=== PATIENT | female | born 1950 | race Caucasian/White ===

== ENCOUNTER 2017-03-26 13:19 | Emergency (ER) | payer OTHER ==
[~2017-03-26] VITALS: Ht 157.5 cm; Wt 71.2 kg
[~2017-03-26 13:19] MED LIST: IBUP800T23 PO; METO25 PO
[2017-03-26 13:25] VITALS: BP 140/76; PULSE 98; RESP 14; TEMP 98.2; O2SAT 96
[2017-03-26] MEDS ORDERED: LISI2.5T3 PO (13:47)
[2017-03-26] MEDS ORDERED: ATOR10TA15 PO (13:47)
--- NOTE | 2017-03-26 13:56 | PD ---
HPI Chief Complaint: Cold / Flu Symptoms Time Seen by Provider: 13:45 Travel History International Travel<30 days: No Contact w/Intl Traveler<30days: No Traveled to known affect area: No History of Present Illness HPI 67 year-old female presents to the emergency room for evaluation of sore throat , nonproductive cough, myalgias, malaise, congestion, and fever. Patient believes she has the flu. States symptoms started 2 nights ago with body aches. Last night she developed sore throat, cough, and slight congestion. She took Tessalon Perles and Tylenol Cold and flu which relieved her symptoms moderately. Maximum temperature was 100.2. 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 Patient takes lisinopril for kidney disease and atorvastatin. Patient had her flu shot and pneumonia vaccine. PFSH Past Medical History Cancer: Yes (LEUKEMIA) Cardiovascular Problems: No Chemotherapy: Yes Diabetes: No Diminished Hearing: No Endocrine: No Genitourinary: No Hepatitis: No Hypertension: Yes Immune Disorder: No Musculoskeletal: Yes Neurologic: No Psychiatric: No Reproductive: No Respiratory: No Thyroid Disease: No ?: Not Tubal Ligation: Yes Past Surgical History Abdominal Surgery: Yes (GALLBLADDER) AICD: No Cholecystectomy: Yes Gynecologic Surgery: Yes (HYSTERECTOMY/ BREAST REDUCTION) Hysterectomy: Yes (1975.) Joint Replacement: No Pacemaker: No Other Surgery: Yes Social History Alcohol Use: No Tobacco Use: No Substance Use: No Allergies-Medications (Allergen,Severity, Reaction): Coded Allergies: Penicillin (Verified Allergy, Severe, RASH, 03/26/17) Pyrazinamide (Verified Allergy, Severe, Nausea/Vomiting, 03/26/17) Sulfa (Verified Allergy, Severe, Nausea/Vomiting, 03/26/17) Ciprofloxacin (Unverified Allergy, Mild, Nausea/Vomiting, 03/26/17) Reported Meds & Prescriptions Reported Meds & Active Scripts Active Reported Atorvastatin (Atorvastatin Calcium) 10 Mg Tab 10 Mg PO HS Lisinopril 2.5 Mg Tab 2.5 Mg PO DAILY Review of Systems Except as stated in HPI: all other systems reviewed are Neg Physical Exam Narrative GENERAL: Well-nourished, well-developed female in no acute distress. Afebrile. Ambulatory. SKIN: Focused skin assessment warm/dry. HEAD: Normocephalic. EYES: No scleral icterus. No injection or drainage. ENT: Mucosa pink and moist. Moderate erythema without edema or exudates. No uvular edema. No uvular, palatal, or tonsillar deviation. Airway patent. Nasal turbinates appear normal without nasal blood, purulent drainage or septal hematoma. EARS: Bilateral pinnae and external canals appear within normal limits. Bilateral tympanic membranes without erythema, dullness or perforation. NECK: Supple, trachea midline. No JVD or lymphadenopathy. CARDIOVASCULAR: Regular rate and rhythm without murmurs, gallops, or rubs. RESPIRATORY: Breath sounds equal bilaterally. No accessory muscle use. No crackles, rales, wheezes, or rhonchi. Data Data Last Documented VS Vital Signs Date Time Temp Pulse Resp B/P Pulse Ox O2 Delivery O2 Flow Rate FiO2 03/26/17 13:47 97 Room Air 03/26/17 13:25 98.2 98 14 140/76 Orders Group A Rapid Strep Screen (03/26/17 13:39) Influenzae A/B Antigen (03/26/17 13:39) Strep Culture (Group A) (03/26/17 13:47) MDM Medical Decision Making Medical Screen Exam Complete: Yes Emergency Medical Condition: Yes Medical Record Reviewed: Yes Differential Diagnosis URI, pneumonia, bronchitis, influenza Narrative Course 67-year-old female presents to the emergency room for evaluation of cold and flu symptoms that started last night. Maximum temperature at home was 100.2. Patient is afebrile and well-appearing in the emergency room. She is not coughing or sniffling. Physical exam is reassuring. No evidence of bacterial infection in the ears, sinuses, or lungs. Lung sounds clear and equal bilaterally. There is mild erythema of the pharynx without exudates or edema. Rapid flu and strep are negative. This is viral upper respiratory infection. Patient was told to follow-up with her primary care physician or return for worsening symptoms. She understands and agrees to plan. Diagnosis Primary Impression: Upper respiratory infection Qualified Code: J00 - Acute nasopharyngitis Referrals: Primary Care Physician Patient Instructions: General Instructions, Upper Respiratory Infection (ED) Additional Instructions: Rest and drink plenty of fluids. Continue [id number] cough and cold medications as directed, as needed for symptoms. Tessalon Perles as directed, as needed for pain. Follow-up with a primary care physician. Return to the emergency room for worsening symptoms. Med/Other Pt SpecificInfo: Prescription(s) given Disposition: 01 DISCHARGE HOME Condition: Stable Sarah Pabon Mar 26, 2017 13:56
== END 2017-03-26 14:18 | disposition home or self-care (01) ==
LOC: PHEFT 13:19
DX: J00 Acute nasopharyngitis [common cold] (principal); J06.9 Acute upper respiratory infection, unspecified; C95.91 Leukemia, unspecified, in remission; I10 Essential (primary) hypertension
CPT/HCPCS: 87081; 87804; 87880; 99283